=== PATIENT | female | born 1955 | race Caucasian/White ===

== ENCOUNTER 2018-08-04 00:59 | Outpatient (CLI) | payer OTHER, SELFPAY ==
--- NOTE | 2018-08-04 07:40 | DI.MAMMO_ITS ---
SYMPTOM/DIAGNOSIS: SCREENING, [facility], Z00.00 MAMMOGRAMS: Mammograms were interpreted according to the usual protocol including computer analysis with CAD system, tomosynthesis and C view imaging. Comparison is made with prior examinations. Breast density, Category B. No masses or microcalcifications are seen. There is nothing to suggest malignancy. IMPRESSION: Negative mammogram. Routine screening is recommended. Category 1. MQSA ASSESSMENT OF FINDINGS: Negative. Category 1. Patient will receive a letter notifying them of these results. BI-RADS category B. There are scattered areas of fibroglandular density.
== END 2018-08-04 01:19 ==
PROVIDERS: PCP Family Medicine; Visit Provider Family Medicine
DX: Z12.31 Encounter for screening mammogram for malignant neoplasm of breast (principal)
CPT/HCPCS: 77063; 77067

== ENCOUNTER 2019-06-22 08:48 | Outpatient (REF) | payer OTHER, SELFPAY ==
[2019-06-22 12:13] LABS: TSH (W/Ref FT4) 5.59 uIU/mL (0.36-3.74)
[2019-06-22 12:30] LABS: FREE T4 0.88 ng/dL (0.76-1.46)
== END 2019-06-22 09:08 ==
LOC: NCHCN 08:48
PROVIDERS: PCP Family Medicine; Visit Provider Family Medicine
DX: R63.5 Abnormal weight gain (principal)
CPT/HCPCS: 84439; 84443

== ENCOUNTER 2019-08-17 01:45 | Outpatient (CLI) | payer OTHER, SELFPAY ==
[2019-08-17 09:06] LABS: CREATININE 0.84 mg/dL (0.55-1.02)
== END 2019-08-17 02:05 ==
PROVIDERS: PCP Family Medicine
DX: Z86.79 Personal history of other diseases of the circulatory system (principal); Z98.890 Other specified postprocedural states
CPT/HCPCS: 36415; 82565

== ENCOUNTER 2019-09-10 06:15 | Day surgery (SDC) | payer OTHER, SELFPAY ==
[2019-09-10] MEDS: Lactated Ringers 1,000 ML 80 ML IV (07:22)
--- NOTE | 2019-09-10 07:54 | BOWEL_PTH ---
PATIENT: Mariana Riley LOC: [facility] U#:[id number] AGE/SX: 63/F ROOM: RE09/10/[address]: Katie Beckwith MD : [id number] BED: DIS: 09/10/2019 SPEC #: [id number] RECD: 09/10/19 12:54 STATUS: [place] REQ #: [id number] HOLLIE: 09/10/19 07:[address]: Katie Beckwith DEPT: Surgical Specimen RECD BY: Ina Jonas ENTERED: 09/10/19 12:55 SP TYPE: Bowel OTHR DR: Vicky Cabrera Tissues: 1 - BIOPSY BOWEL Procedures: GROSS AND MICRO LEVEL 4 Comments: [id number]
--- NOTE | 2019-09-10 08:10 | W.COLOREPORT ---
Date of service: 09/10/19 Time of Service: 08:10 Colonoscopy Report Date of procedure: 09/10/19 Pre-op diagnosis general: Colon Cancer Screening Post-op diagnosis procedure note: other (Mild Diverticulosis, internal hemorrhoids, polyp) Procedure: Colonoscopy with polypectomy Surgeon: Katie Beckwith Anesthesia proc note operative: other (General/ ASA 2/ lynne Jacinto, ROSELINE) Estimated blood loss (mL): 5 Pathology: other (Hepatic flexure polyp) Complications: None Disposition: same day Indications: 63-year-old female here for a screening colonoscopy. Her last colonoscopy was 11 years ago and was normal. She has no family history of colon cancer. Risks, benefits and complications have been reviewed. Complications include but are not limited to bleeding, pain, perforation, missed small lesion/polyp, sore throat, aspiration and adverse reaction to the medications. Questions were entertained and answered to their satisfaction and they wished to proceed. No guarantees were given or implied. Prep: Miralax/Dulcolax Procedure Start Time: 07:26 Procedure End Time: 08:04 Retraction Time: 20 minutes Findings: Mild diverticulosis of the sigmoid colon Possibly one polyp ? it may just be a lymphoid agregate Internal hemorrhoids Grade 1 Procedure Description: After informed consent was obtained the patient was taken to the procedure room and placed in a left decubitous position. Monitors were applied and a time out was done. The patients name, date of , procedure, allergies to medications and metal in their body was reviewed. The patient was then sedated. Once sedated and comfortable a rectal exam was done. External exam was normal. Internal exam revealed a normal sphincter tone and no palpable masses. The scope was then introduced and retro-flexed. Grade 1/2 internal hemorrhoids were identified. The scope was then advanced to the cecum with some difficulty due to a tortuous colon. The TI and appendiceal orifice were identified. The prep was adequate. The scope was then slowly retracted over 20 minutes back into the rectum. Polyps were removed with cold forceps at the hepatic flexure. This may just be a lymphoid aggregate and not a polyp. Mild diverticulosis was noted in the sigmoid colon. The scope was removed and the patient was woken up and taken back to Same day surgery in stable condition. The patient tolerated the procedure well and there were no immediate complications. Follow up: Follow up in will depend on path results.
--- NOTE | 2019-09-10 08:16 | PDOC.DSDIS_ITS ---
Discharge Plan Disposition Patient Disposition: HOME Condition: Good Discharge Details Reason For Visit: Colonoscopy Attending Provider: Katie Beckwith Primary Care Provider: Vicky Cabrera Home Meds and New Rx's Prescriptions: Continued multivitamin Capsule 1 cap PO DAILY RF: 0 atorvastatin 10 mg tablet 10 mg PO DAILY RF: 0 famotidine [Acid Buckle And Button Maker (famotidine)] 20 mg tablet 20 mg PO DAILY RF: 0 Discontinued bisacodyl [Dulcolax (bisacodyl)] 5 mg tablet,delayed release (DR/EC) 5 mg PO ONCE Qty: 4 RF: 0 polyethylene glycol 3350 17 gram powder in packet 255 g PO DAILY Qty: 15 RF: 0 Discharge Instructions Instructions: Diverticulosis (DC), Hemorrhoids (DC) Additional Instructions: Findings: mild diverticulosis small internal hemorrhoids ? a small polyp Follow up: depends on pathology results. Most likely 10 years Please call if you develop: fevers >101.5 Nausea or Vomiting Abdominal pain that is not transient DAY SURGERY UNIT POST ENDOSCOPY INSTRUCTIONS 1. Because there will be medication in your system for the next 24 hours, you may feel a little sleepy. Your coordination will be affected. Therefore: a. Do not drive or operate dangerous equipment for 24 hours. b. Do not drink alcohol beverages for 24 hours (not even beer). c. Plan to go home and rest for the day. 2. Generally there are no restrictions on your activity after a day or so has gone by, but you may feel a bit fatigued for a few days. 3 After you arrive home you may have a light meal and return to a normal diet as you can tolerate it without feeling sick to your stomach. 4. After surgery, you may feel pain or discomfort. This should be only transient, but if it persists please contact your doctor. 5. If there are any questions regarding the findings of your procedure, please feel free to contact your doctor. 6. If you are unable to contact your doctor with a problem, contact the hospital at [phone]. 7. Continue all your regular medications unless directed otherwise. I understand the above instructions and have no questions. Signature of Patient or Responsible Adult Escort Date/Time Name of Responsible Adult Escort Signature of Nurse Date/Time DS: Diagnosis Discharge Diagnosis (1) Diverticulosis: Status: Acute (2) S/P colonoscopy: Status: Acute (3) Internal hemorrhoids: Status: Acute
[2019-09-10 08:48] VITALS: BP 134/56; PULSE 77; RESP 17; TEMP 36.5; O2SAT 96
[2019-09-10 14:16] VITALS: BP 123/72; PULSE 78; RESP 18; TEMP 36.6; O2SAT 99
== END 2019-09-10 09:10 | disposition home or self-care (01) ==
PROVIDERS: PCP Family Medicine; Visit Provider Surgery
PROC: 0DJD8ZZ Inspection of Lower Intestinal Tract, Via Natural or Artificial Opening Endoscopic (ICD-10-PCS; CPT 45378; principal; 2019-09-10 07:30)
DX: Z12.11 Encounter for screening for malignant neoplasm of colon (principal); K63.89 Other specified diseases of intestine; K64.1 Second degree hemorrhoids; K57.30 Diverticulosis of large intestine without perforation or abscess without bleeding
CPT/HCPCS: 45380; 88305; J2405

== ENCOUNTER 2020-11-21 14:56 | Outpatient (REF) | payer MEDICARE, SELFPAY ==
[2020-11-21 17:02] LABS: HCT 37.7 % (36.0-46.0); HGB 12.2 g/dL (11.2-15.7); MCH 28.8 pg (27.0-33.0); MCHC 32.4 % (32.0-36.0); MCV 88.9 fL (80-95); MPV 9.9 fL (8.0-11.0); Platelet Count 218 10^3/uL (130-400); RBC 4.24 10^6/uL (3.93-5.22); RDW 14.3 % (11.7-14.6); RDW-SD 46.5 fL; WBC 4.52 10^3/uL (4.4-10.8)
[2020-11-21 17:06] LABS: Hemoglobin A1C 5.9 % (<5.7)
[2020-11-21 17:16] LABS: Anion Gap 8.6 mmol/L (3-11); BUN 20 mg/dL (7-18); CO2 28.4 mmol/L (21.0-32.0); CREATININE 0.8 mg/dL (0.55-1.02); Calcium 9.4 mg/dL (8.5-10.1); Calculated LDL 93 mg/dL (<100); Chloride 103 mmol/L (98-107); Cholesterol 161 mg/dL (<200); Glucose 85 mg/dL (74-106); HDL Cholesterol 51 mg/dL (40-60); Potassium 4.8 mmol/L (3.5-5.1); Sodium 140 mmol/L (136-145); TSH (W/Ref FT4) 1.49 uIU/mL (0.36-3.74); Triglyceride 85 mg/dL (<150)
== END 2020-11-21 14:57 | disposition home or self-care (01) ==
LOC: NCHCN 14:56
PROVIDERS: PCP Family Medicine; Visit Provider Family Medicine
DX: E03.9 Hypothyroidism, unspecified (principal); E78.5 Hyperlipidemia, unspecified; R73.03 Prediabetes
CPT/HCPCS: 80048; 80061; 85027; 83036; 84443

== ENCOUNTER 2021-02-27 02:46 | Outpatient (CLI) | payer MEDICARE, SELFPAY ==
--- NOTE | 2021-02-27 | DI.MAMMO_ITS ---
Exam(s) MAMMO SCREENING EXAM: MAMMO SCREENING CLINICAL HISTORY: SCREENING,Z12.39 TECHNIQUE: Mammograms were interpreted according to the usual protocol including computer analysis w [facility] CAD system, tomosynthesis and C-view imaging. COMPARISON: FINDINGS: The breasts are of moderate density with fairly symmetrical distribution of fibroglandular tissue. P rior left central breast biopsy is noted. There is no dominant mass or clumped microcalcification in either breast. Current examination is compared with previous examinations including August 2018 a nd there is question of increased prominence of a focal area of asymmetric density projected in the c entral portion left breast on MLO view. Additional mammographic views are requested to include MLO s pot compression view of the left breast. No other significant change seen. IMPRESSION: Additional mammographic views of the left breast requested as described above. Breast ultrasound may be indicated as well depending on the results of the additional mammographic views. BI-RADS Category 0 - Assessment Incomplete: Need additional imaging evaluation Breast Density - Category B - Scattered areas of fibroglandular density
== END 2021-02-27 03:06 ==
PROVIDERS: PCP Family Medicine; Visit Provider Family Medicine
DX: Z12.31 Encounter for screening mammogram for malignant neoplasm of breast (principal); R92.8 Other abnormal and inconclusive findings on diagnostic imaging of breast
CPT/HCPCS: 77063; 77067

== ENCOUNTER 2021-03-16 01:03 | Outpatient (CLI) | payer MEDICARE, SELFPAY ==
--- NOTE | 2021-03-16 | DI.US_ITS ---
Exam(s) US BREAST LT COMPLETE EXAM: US BREAST LT COMPLETE CLINICAL HISTORY: F/U MAMMO, ? INCREASE IN ASYMMTRIC DENSITY. TECHNIQUE: Complete ultrasound of the left breast was performed incluing all 4 quadrants, the retroa reolar region, and the ipsilateral axilla. COMPARISON: Prior mammograms were reviewed. Most recent mammogram was 02/27/2021. This patient also underwent spot mammographic view earlier today. FINDINGS: At 3 o'clock position there is an 8 x 6 millimeter benign lymph node which most probably corresponds to the laterally and posteriorly located lymph node on the mammogram. However, there are no ultrasound findings to correspond to the area of possible concern seen on the m ammogram (which is less concerning in appearance on today's additional spot mammographic view. IMPRESSION: Benign findings. No radiographic or ultrasound evidence of malignancy in the left breast. Appropriate follow-up is to keep this patient yearly mammogram schedule, with earlier imaging if a se lf detected breast change is noted. BI-RADS Category 2 - Benign Findings Breast Density - Category B - Scattered areas of fibroglandular density Breast density Category C or D implies that the patient has dense breast tissue. Dense breast tissue can make it harder to find cancer on a mammogram. Dense breast tissue is also associated with an incr eased risk of breast cancer. This information about the result of the mammogram report was provided to the patient to raise their awareness. Use this report when you speak with the patient about their risks for breast cancer, which includes their family history. At that time, you may recommend additional screening tests (Ultrasoun d or MRI) as these tests may add significant information. A negative radiographic report should not delay biopsy if a dominant or clinically suspicious mass is present. Up to ten percent of cancers are not identified on mammography. A negative report may reinforce clinical impression. Adenosis and dense breasts may obscure an underlying neoplasm. False positive reports average 6 to 10%. Patient will receive a letter notifying them of these results.
--- NOTE | 2021-03-16 14:02 | DI.MAMMO_ITS ---
Exam(s) MG MAMMO SCREEN CALL BACK UNI EXAM: MAMMO SCREEN CALL BACK UNI-LEFT CLINICAL HISTORY: F/U MAMMO, ?INCREASE IN ASYMMETRIC DENSITY. TECHNIQUE: Unilateral spot mammographic images were obtained with 3D tomosynthesis and utilizing com puter aided detection (CAD). . Breast Ultrasound was also performed. COMPARISON: Prior mammograms were reviewed. This additional imaging was performed due to findings described on the recent screening mammogram of 02/27/2021. FINDINGS: Additional mammographic views performed todayrender this area less concerning. Ultrasound performed today reveals no significant ultrasound findings at this location.. At 3 o'cloc k position of benign 8 x 6 millimeter lymph node is noted on ultrasound IMPRESSION: No radiographic evidence of malignancy. See separate ultrasound report. Appropriate follow-up is to keep this patient yearly mammogram schedule, with earlier imaging if a se lf detected breast change is noted.. The patient was informed of these findings and recommendations prior to leaving the department today. BI-RADS Category 2 - Benign Findings Breast Density - Category B - Scattered areas of fibroglandular density Breast density Category C or D implies that the patient has dense breast tissue. Dense breast tissue can make it harder to find cancer on a mammogram. Dense breast tissue is also associated with an incr eased risk of breast cancer. This information about the result of the mammogram report was provided to the patient to raise their awareness. Use this report when you speak with the patient about their risks for breast cancer, which includes their family history. At that time, you may recommend additional screening tests (Ultrasoun d or MRI) as these tests may add significant information. A negative radiographic report should not delay biopsy if a dominant or clinically suspicious mass is present. Up to ten percent of cancers are not identified on mammography. A negative report may reinforce clinical impression. Adenosis and dense breasts may obscure an underlying neoplasm. False positive reports average 6 to 10%. Patient will receive a letter notifying them of these results.
== END 2021-03-16 01:23 ==
PROVIDERS: PCP Family Medicine; Visit Provider Family Medicine
DX: Z12.31 Encounter for screening mammogram for malignant neoplasm of breast (principal); R92.8 Other abnormal and inconclusive findings on diagnostic imaging of breast; N60.82 Other benign mammary dysplasias of left breast
CPT/HCPCS: 76642; 77063; 77067

== ENCOUNTER 2022-01-29 20:12 | Outpatient (REF) | payer MEDICARE, SELFPAY ==
[2022-01-31 14:26] LABS: COVID-19 RT-PCR UVMMC Result Negative (Negative)
== END 2022-01-29 20:13 | disposition home or self-care (01) ==
LOC: NCHCN 20:12
PROVIDERS: PCP Family Medicine; Visit Provider Family Medicine
DX: Z20.822 Contact with and (suspected) exposure to COVID-19 (principal); J06.9 Acute upper respiratory infection, unspecified
CPT/HCPCS: U0003

== ENCOUNTER 2022-03-25 16:23 | Outpatient (REF) | payer MEDICARE, SELFPAY ==
[2022-03-25 16:01] LABS: Anion Gap 9.4 mmol/L (3-11); BUN 23 mg/dL (7-18); CO2 27.6 mmol/L (21.0-32.0); CREATININE 0.8 mg/dL (0.55-1.02); Calcium 9.1 mg/dL (8.5-10.1); Chloride 104 mmol/L (98-107); Glucose 87 mg/dL (74-106); Potassium 4.5 mmol/L (3.5-5.1); Sodium 141 mmol/L (136-145); TSH (W/Ref FT4) 1.47 uIU/mL (0.36-3.74)
== END 2022-03-25 16:24 | disposition home or self-care (01) ==
LOC: NCHCN 16:23
PROVIDERS: PCP Family Medicine; Visit Provider Family Medicine
DX: E03.9 Hypothyroidism, unspecified (principal); E78.5 Hyperlipidemia, unspecified; Z79.899 Other long term (current) drug therapy
CPT/HCPCS: 80048; 84443

== ENCOUNTER 2022-05-01 06:56 | Emergency (ER) | payer MEDICARE, SELFPAY ==
[2022-05-01] VITALS (18 sets, daily range): BP systolic 134–166; BP diastolic 62–86; PULSE 62–92; RESP 18; TEMP 36.5; O2SAT 92–100
--- NOTE | 2022-05-01 07:17 | DI.CT_ITS ---
Exam(s) CT ABDOMEN PELVIS CTA EXAM: CT ABDOMEN PELVIS CTA INDICATION: lower gi bleed, history of AAA with stent. COMPARISON: No exams were available for comparison TECHNIQUE: FINDINGS: CT examination of the abdomen and pelvis was performed with intravenous infusion of 100 cc of Omnipaq ue 350. Images obtained through the lung bases are unremarkable. The liver is unremarkable in appearance. Gallbladder and bile ducts are CT normal. Pancreas appears normal. Spleen is unremarkable in appearance. Adrenals appear normal. The kidneys are unremarkable with no evidence of hydronephrosis, nephrolithiasis, or renal mass.. Ur inary bladder unremarkable. There is an aortic bi-iliac stent in position. There is a 31 millimeter in diameter abdominal aortic aneurysm without evidence of rupture or leakage. No significant abdominal wall hernia. No abdominal or pelvic adenopathy. CURTAIN CUTTER structures appear intact. Appendix is normal. No evidence of diverticulitis or bowel obstruction. There is marked colonic wall thickening with pericolonic fat edema extending from this cecum to the m id sigmoid level. There is small quantity of free pelvic fluid. Findings are highly suggestive of a colitis, etiology uncertain. IMPRESSION: No evidence of acute vascular abnormality. There is a markedly abnormal appearance of the colon sugg esting a page colitis sparing the distal sigmoid and rectum.. RADIATION DOSE DELIVERED: 921.46mGy.cm Total DLP 921.46mGy.cm Total DLP !Error CTDIvol RADIATION OPTIMIZATION: All CT scans at this facility use at least one of these dose optimization te chniques: automated exposure control; mA and/or kV adjustment per patient size (includes targeted exa ms where dose is matched to clinical indication); or iterative reconstruction.
--- NOTE | 2022-05-01 07:19 | W.ED.GENAD ---
Discharge Plan Disposition Patient Disposition: STILL A PATIENT Condition: Stable Discharge Details Chief Complaint: Abd Prob Clinical Impression: Abdominal pain, BRBPR (bright red blood per rectum) Primary Care Provider: Vicky Cabrera ED Provider: Meño Greenfield Home Meds and New Rx's Prescriptions: No Action multivitamin Capsule 1 cap PO DAILY atorvastatin 10 mg tablet 10 mg PO DAILY famotidine [Acid Product Manager (famotidine)] 20 mg tablet 20 mg PO DAILY Medical Decision Making 66 yo female with hx of aaa s/p [place] [facility] [place] who comes in with abdominal pain and bright red blood per rectum. She felt well most of the day yesterday but then noticed she had a hard stool last night so strained to have a BM. She then later had lower abdomen pain and woke up and had a bloody bowel movement so came here. She still has the lower abdomen pain that she describes as a pressure. She has never had pain like this before. She is tender in the left lower abdomen without guarding, no upper abdominal tenderness. She has a small amount of blood on rectal exam when finger is removed during internal exam. She has not had any fevers and no vomit. Suspect this could be colitis vs diverticulitis but given her hx of aaa will obtain cta to evaluate for possible rupture of the aaa though unlikely given stable vitals and to also evaluate for diverticulitis and colitis. Patient signed out to oncoming provider pending labs and imaging results Differential Diagnosis Differential Diagnosis: diverticulitis, aaa, colitis Medical Records Medical records reviewed: Yes I reviewed the patient's medical records. Lab Data Lab results reviewed: Yes I reviewed the patient's lab results. HPI General Mode of arrival: ambulatory. Date/Time Provider Initiated Documentation: 05/01/22 06:58. Limitations to Documentation: no limitations. Information obtained by: patient. History of Present Illness 66 year old F presents to the emergency department with the chief complaint of abdominal pain, described as moderate, and is localized to the abdomen. Patient reports no radiation. Patient started experiencing this day(s) (1) and it has been constant. No relieving factors improve symptom(s), No exacerbating factors reported . Patient notes other (bloody bowel movements). Patient did receive the following treatments prior to arrival, none Related Data Home Medications Medication Instructions Recorded Confirmed atorvastatin 10 mg tablet 10 mg PO DAILY 07/16/19 09/05/19 famotidine 20 mg tablet (Acid 20 mg PO DAILY 07/16/19 09/05/19 Product Manager (famotidine)) multivitamin 1 cap PO DAILY 07/16/19 09/05/19 Allergies Allergy/AdvReac Type Severity Reaction Status Date / Time No Known Allergies Allergy Verified 08/17/19 07:29 General Stated Complaint: Abd Prob LIYA: 3 Review of Systems All systems reviewed & are unremarkable except as noted in HPI and below Constitutional Constitutional: Denies chills, Denies fever(s) and Denies weakness Cardiovascular Cardiovascular: Denies chest pain and Denies dyspnea Respiratory Respiratory: Denies cough and Denies dyspnea Gastrointestinal Gastrointestinal: Denies vomiting Genitourinary Genitourinary: Denies dysuria Neurologic Neurologic: Denies weakness PFSH All Active Problems (Updated 05/01/22 @ 07:27 by Meño Greenfield MD) Abdominal pain (Acute) BRBPR (bright red blood per rectum) (Acute) Internal hemorrhoids (Acute) S/P colonoscopy (Acute ~09/10/19) 2007- normal Diverticulosis (Acute) Screening for malignant neoplasm of colon performed (Acute) Abdominal aortic aneurysm (Acute) Hyperlipidemia (Acute) Tinnitus (Acute) Obesity (Chronic) GERD (gastroesophageal reflux disease) (Chronic) Hypothyroidism (Chronic) Medical History (Updated 05/01/22 @ 07:27 by Meño Greenfield MD) Pre-diabetes Surgical History (Updated 09/10/19 @ 08:16 by Katie Beckwith MD) H/O endovascular stent graft for abdominal aortic aneurysm Family History (Updated 07/16/19 @ 07:09 by Sandi Christina RN) Mother No problems noted. Father , Parkinsons, COPD, lung cancer, No problems noted. Social History (Updated 08/17/19 @ 07:49 by Katie Beckwith MD) Smoking/Tobacco Use Status: Former Tobacco Use Smoking risk assessment performed?: Yes Alcohol Intake: current Alcohol Intake frequency: holidays/special occasions only Drug use: Never Substance use type: does not use Household members: spouse Number of Children: 2 Current gender identity: female Do you feel safe at home: Yes Do you feel safe in your relationship?: Yes Exam Const General: no acute distress Orientation: alert HENMT Head: normal to inspection Ears: external ears normal General nose exam: external nose normal Mouth: moist mucous membranes Eyes General: appearance normal, both eyes and all related structures Neck Neck: normal visual inspection Resp Effort & Inspection: normal respiratory effort and able to speak in complete sentences Cardio Rate: regular rate GI Palpation: soft and tender Skin General skin exam: no rashes or lesions noted Neuro General: patient alert and patient oriented x3 Extrem General: normal to inspection Psych Mental Status: mental status grossly normal Course Vital Signs Vital signs: Vital Signs Temperature 36.5 C 05/01/22 07:05 Pulse 92 H 05/01/22 07:05 Respiratory Rate 18 05/01/22 07:05 Blood Pressure 166/81 H 05/01/22 07:05 Pulse Oximetry 99 05/01/22 07:05 Temperature 36.5 C 05/01/22 07:05 Temperature Source Temporal Artery Scan 05/01/22 07:05 Pulse 92 H 05/01/22 07:05 Respiratory Rate 18 05/01/22 07:05 Blood Pressure 166/81 H 05/01/22 07:05 Blood Pressure Position Sitting 05/01/22 07:05 Pulse Oximetry 99 05/01/22 07:05 Oxygen Delivery Method Room Air 05/01/22 07:05 Oxygen Flow Rate 0 05/01/22 07:05
[2022-05-01 07:42] LABS: Source Nasal/Nares
[2022-05-01 07:42] LABS: Abs Immature Grans 0.05 10^3/uL (0.0-0.06); Absolute Basophil Count 0.05 10^3/uL (0.0-0.2); Absolute Neutrophil Count 14.89 10^3/uL (1.2-6.7); Basophils % 0.3; HCT 41.8 % (36.0-46.0); HGB 13.4 g/dL (11.2-15.7); Immature Grans % 0.3; Lymphocytes % 4.4; MCH 29.1 pg (27.0-33.0); MCHC 32.1 % (32.0-36.0); MCV 91 fL (80-95); MPV 9.1 fL (8.0-11.0); Monocytes % 3.4; Neutrophils % 91.6; Platelet Count 263 10^3/uL (130-400); RDW 13.5 % (11.7-14.6); RDW-SD 45.6 fL; WBC 16.26 10^3/uL (4.4-10.8)
[2022-05-01 07:43] LABS: Absolute Lymphocyte Count 0.72 10^3/uL (1.2-3.4); Absolute Monocyte Count 0.55 10^3/uL (0.1-0.8)
[2022-05-01 07:58] LABS: PTT Activated 21.8 sec (21.0-27.5); Prothrombin Time 10.4 sec (9.3-11.0)
[2022-05-01 08:00] LABS: ALT 26 U/L (14-59); AST 20 U/L (15-37); Albumin 4.3 g/dL (3.4-5.0); Alkaline Phosphatase 118 U/L (46-116); Anion Gap 9.9 mmol/L (3-11); BUN 24 mg/dL (7-18); Bilirubin, Total 0.7 mg/dL (0.2-1.0); CO2 26.1 mmol/L (21.0-32.0); CREATININE 1.1 mg/dL (0.55-1.02); Calcium 9.4 mg/dL (8.5-10.1); Chloride 103 mmol/L (98-107); Estimated GFR 49.69 (mL/min/1.73m2); Glucose 141 mg/dL (74-106); Lipase 71 U/L (73-393); Magnesium 1.9 mg/dL (1.8-2.4); Potassium 4.1 mmol/L (3.5-5.1); Sodium 139 mmol/L (136-145); Total Protein 8.2 g/dL (6.4-8.2)
[2022-05-01 08:34] LABS: COVID-19 PCR Negative (Negative)
[2022-05-01] MEDS: Normal Saline Flush 10 ML SYR IVP (08:39)
[2022-05-01] MEDS: Omnipaque 350 MG/ML 100 ML BTL IJ (08:39)
--- NOTE | 2022-05-01 10:04 | DI.VRAD_ITS ---
PROCEDURE INFORMATION: Exam: CTA Abdomen and Pelvis With Contrast, GI Bleeding Exam date and time: 05/01/2022 8:25 AM Age: 66 years old Clinical indication: Other: Lower gi bleed, known aaa w/ stent TECHNIQUE: Imaging protocol: Computed tomographic angiography of the abdomen and pelvis with contrast. 3D rendering (Not supervised by radiologist): MIP and/or 3D reconstructed images were created by the technologist. Radiation optimization: All CT scans at this facility use at least one of these dose optimization techniques: automated exposure control; mA and/or kV adjustment per patient size (includes targeted exams where dose is matched to clinical indication); or iterative reconstruction. Contrast material: OMNIPAQUE 350; Contrast volume: 100 ml; Contrast route: INTRAVENOUS (IV); COMPARISON: No relevant prior studies available. FINDINGS: Tubes, catheters and devices: Infrarenal abdominal aortic aneurysm status post endograft repair. The aneurysm measures 3.0 x 3.1 cm. Aorta: No aortic aneurysm. No aortic dissection. Celiac trunk and mesenteric arteries: No occlusion or significant stenosis. Renal arteries: No occlusion or significant stenosis. Right iliac arteries: No occlusion or significant stenosis. Left iliac arteries: No occlusion or significant stenosis. Liver: No mass. Gallbladder and bile ducts: Unremarkable. No calcified stones. No ductal dilation. Pancreas: Unremarkable. No mass. No ductal dilation. Spleen: Unremarkable. No splenomegaly. Adrenal glands: Normal. No mass. Kidneys and ureters: Unremarkable. No solid mass. No hydronephrosis. Stomach and bowel: There is diffuse colonic wall thickening and pericolonic fat stranding, compatible with pancolitis, either infectious, inflammatory, less likely ischemic or neoplastic in nature. Appendix: No evidence of appendicitis. Intraperitoneal space: Small volume of simple free fluid in the pelvis. Lymph nodes: Unremarkable. No enlarged lymph nodes. Urinary bladder: Unremarkable. No mass. Reproductive: Unremarkable as visualized. Bones/joints: No acute fracture. No dislocation. Soft tissues: Fat containing umbilical hernia. IMPRESSION: 1. There is diffuse colonic wall thickening and pericolonic fat stranding, compatible with pancolitis, either infectious, inflammatory, less likely ischemic or neoplastic in nature. 2. Infrarenal abdominal aortic aneurysm status post endograft repair. Dictated and Authenticated by: Piter Burciaga MD. Ordering:MERARY Wilder MD
--- NOTE | 2022-05-01 10:15 | W.EDPROG ---
Date of service: 05/01/22 Time of Service: 10:15 Medical Decision Making Resting comfortably no acute distress only has discomfort before she is about to have a bowel movement. Evidence of pancolitis. Hemodynamically stable. Patient feels comfortable going home with oral antibiotics. Will be given first dose of Augmentin here. Home care instructions and return precautions given. Sign Out Sign Out Data: Sign Out Comment: lower abdomen pain starting last night and blood per rectum this morning, tender in llq, hx of AAA with stent placed ~5 years ago, pending cta and labs Last updated by Meño Greenfield MD at 05/01/22 07:38 Discharge Plan Disposition Patient Disposition: HOME Condition: Improving Discharge Details Clinical Impression: Abdominal pain, BRBPR (bright red blood per rectum), Colitis Primary Care Provider: Vicky Cabrera ED Provider: Siva Lora Home Meds and New Rx's Prescriptions: New amoxicillin-pot clavulanate 875-125 mg tablet 1 tab PO BID 10 Days Qty: 20 0RF No Action multivitamin Capsule 1 cap PO DAILY atorvastatin 10 mg tablet 10 mg PO DAILY famotidine [Acid Impact Retail Service Merchandiser (famotidine)] 20 mg tablet 20 mg PO DAILY Discharge Instructions Instructions: Colitis (ED) Additional Instructions: Please follow-up with your primary care physician. Consider a follow-up colonoscopy after you heal from your current infection. Please return sooner if you develop any worsening symptoms such as uncontrolled bleeding nausea vomiting fevers severe pain dehydration or other abnormal symptoms.
[2022-05-01] MEDS: Amoxicillin 875/Clav. 125 TAB PO (10:19)
--- NOTE | 2022-05-01 10:19 | NUR.NOTE ---
Nursing Note: Referral faxed to PCP for colitis/needs GI follow up; within 1 -2 weeks.
== END 2022-05-01 10:35 | disposition home or self-care (01) ==
PROVIDERS: Emergency Medicine; Emergency Provider Emergency Medicine; PCP Family Medicine
DX: K52.9 Noninfective gastroenteritis and colitis, unspecified (principal); K62.5 Hemorrhage of anus and rectum; Z86.79 Personal history of other diseases of the circulatory system; Z95.5 Presence of coronary angioplasty implant and graft; Z87.891 Personal history of nicotine dependence; Z20.822 Contact with and (suspected) exposure to COVID-19
CPT/HCPCS: 36415; 80053; 83690; 86850; 86900; 86901; 87635; 99284; 99285; 74174; 83735; 85025; 85610; 85730; J3490

== ENCOUNTER 2022-06-30 03:26 | Outpatient (CLI) | payer MEDICARE, SELFPAY ==
[2022-06-30 08:08] LABS: CREATININE 0.8 mg/dL (0.55-1.02); Estimated GFR 81.21 (mL/min/1.73m2)
== END 2022-06-30 03:27 | disposition home or self-care (01) ==
LOC: LBO 03:27
PROVIDERS: PCP Family Medicine; Visit Provider Surgery Vascular Surgery
DX: Z98.890 Other specified postprocedural states (principal); Z86.79 Personal history of other diseases of the circulatory system
CPT/HCPCS: 36415; 82565

== ENCOUNTER → 2022-07-23 00:24 | Outpatient (CLI) | payer MEDICARE, SELFPAY ==
--- NOTE | 2022-07-23 14:30 | DI.DEXA_ITS ---
Exam(s) XR DEXA BONE DENSITY W/WO LAST EXAM: XR DEXA BONE DENSITY W/WO LAST CLINICAL HISTORY: POSTMENOPAUSAL, Z78.0 TECHNIQUE: Routine DEXA evaluation of the lumbar spine, hip, or forearm. COMPARISON: No exams were available for comparison FINDINGS: Performed on a Hologic unit. Lateral image: No compression fracture evident. Lumbar Spine total T-score: -0.8 Hip total T-score:0.5 Independent reading at the level of the femoral neck yields at T-score of -2.0. Forearm total T-score: -0.3 IMPRESSION: Bone mineral density measures in the osteopenia range. Fracture risk is moderate. Note: Any spine fracture indicates 5x risk for subsequent spine fracture and 2x risk for subsequent h ip fracture. World Health Organization criteria for BMD interpretation classify patients: Normal...... T- Score at or above -1.0 Osteopenic... T- Score between -1.0 and -2.5 Osteoporosis... T-Score at or below -2.5
== END ==
PROVIDERS: PCP Family Medicine; Visit Provider Family Medicine
DX: Z78.0 Asymptomatic menopausal state (principal); Z13.820 Encounter for screening for osteoporosis; M85.88 Other specified disorders of bone density and structure, other site
CPT/HCPCS: 77080

== ENCOUNTER 2023-05-06 00:53 | Outpatient (CLI) | payer MEDICARE, SELFPAY ==
--- NOTE | 2023-05-06 08:00 | DI.MAMMO_ITS ---
Exam(s) MAMMO SCREENING EXAM: MAMMO SCREENING CLINICAL HISTORY: SCREENING, Z12.39. TECHNIQUE: Bilateral full field digital CC and MLO mammographic images were obtained with 3D tomosyn thesis and utilizing computer aided detection (CAD). COMPARISON: Prior mammograms were reviewed. FINDINGS: There has been no significant change in the appearance and distribution of the fibroglandular tissue. There are no new spiculated masses nor malignant appearing microcalcification groups. There is no significant architectural distortion nor skin thickening-retraction. IMPRESSION: No radiographic evidence of malignancy. BI-RADS Category 1 - Negative Breast Density - Category B - Scattered areas of fibroglandular density Breast density Category C or D implies that the patient has dense breast tissue. Dense breast tissue can make it harder to find cancer on a mammogram. Dense breast tissue is also associated with an incr eased risk of breast cancer. This information about the result of the mammogram report was provided to the patient to raise their awareness. Use this report when you speak with the patient about their risks for breast cancer, which includes their family history. At that time, you may recommend additional screening tests (Ultrasoun d or MRI) as these tests may add significant information. A negative radiographic report should not delay biopsy if a dominant or clinically suspicious mass is present. Up to ten percent of cancers are not identified on mammography. A negative report may reinforce clinical impression. Adenosis and dense breasts may obscure an underlying neoplasm. False positive reports average 6 to 10%. Patient will receive a letter notifying them of these results.
== END 2023-05-06 01:13 ==
LOC: DI 00:53
PROVIDERS: PCP Family Medicine; Visit Provider Family Medicine
DX: Z12.31 Encounter for screening mammogram for malignant neoplasm of breast (principal)
CPT/HCPCS: 77063; 77067

== ENCOUNTER 2024-04-27 12:11 | Outpatient (REF) | payer MEDICARE, SELFPAY ==
[2024-04-27 19:14] LABS: ALT 26 U/L (14-59); AST 18 U/L (15-37); Alkaline Phosphatase 79 U/L (46-116); Anion Gap 8.2 mmol/L (3-11); BUN 24 mg/dL (7-18); Bilirubin, Total 0.41 mg/dL (0.2-1.0); CO2 28.8 mmol/L (21.0-32.0); CREATININE 0.8 mg/dL (0.55-1.02); Calcium 9.3 mg/dL (8.5-10.1); Calculated LDL 74 mg/dL (<100); Chloride 104 mmol/L (98-107); Cholesterol 138 mg/dL (<200); Estimated GFR 80.21 (mL/min/1.73m2); Glucose 79 mg/dL (74-106); HDL Cholesterol 55 mg/dL (40-60); Potassium 4.3 mmol/L (3.5-5.1); Sodium 141 mmol/L (136-145); Total Protein 7.1 g/dL (6.4-8.2); Triglyceride 48 mg/dL (<150)
== END 2024-04-27 12:12 | disposition home or self-care (01) ==
LOC: NCHCN 12:11
PROVIDERS: PCP Family Medicine; Visit Provider Family Medicine
DX: E78.5 Hyperlipidemia, unspecified (principal); I71.40 Abdominal aortic aneurysm, without rupture, unspecified
CPT/HCPCS: 80053; 80061

== ENCOUNTER 2024-12-06 12:40 | Emergency (ER) | payer MEDICARE, SELFPAY ==
[2024-12-06 12:43] VITALS: BP 196/80; PULSE 78; RESP 16; TEMP 36.6; O2SAT 97
[2024-12-06 12:51] VITALS: BP 153/88; PULSE 71
[2024-12-06 13:30] LABS: Bilirubin Negative (Negative); Blood Negative (Negative); Clarity Clear (Clear); Glucose Negative (Negative); Ketones 80 mg/dL (Negative); Leukocyte Esterase Negative (Negative); Nitrite Negative (Negative); Specific Gravity >= 1.030 (1.005-1.025); Urobilinogen 0.2 mg/dL (Up to 0.2); pH 5.5 (5-8)
--- NOTE | 2024-12-06 13:30 | RT.EKG_ITS ---
APPROVED REPORT Exam: Resting ECG Reason for Exam: epigastric pain Patient Location: E HR:79 bpm ECG Measurements Heart Rate 79 AXIS ME 168 P 37 QRSd 90 QRS -6 QT 392 T 24 QTc 448 Conclusion Sinus rhythm...normal P axis, V-rate 60- 99 I have reviewed and interpreted ECG and agree with software generated interpretation.
[2024-12-06 14:19] LABS: Abs Immature Grans 0.01 10^3/uL (0.0-0.06); Absolute Basophil Count 0.05 10^3/uL (0.0-0.2); Absolute Lymphocyte Count 0.83 10^3/uL (1.2-3.4); Absolute Monocyte Count 0.22 10^3/uL (0.1-0.8); Absolute Neutrophil Count 5.22 10^3/uL (1.2-6.7); Basophils % 0.8 %; HCT 37.8 % (36.0-46.0); HGB 12.5 g/dL (11.2-15.7); Immature Grans % 0.2 %; Lymphocytes % 13.1 %; MCH 29.9 pg (27.0-33.0); MCHC 33.1 % (32.0-36.0); MCV 90 fL (80-95); MPV 9.2 fL (8.0-11.0); Monocytes % 3.5 %; Neutrophils % 82.4 %; Platelet Count 204 10^3/uL (130-400); RBC 4.18 10^6/uL (3.93-5.22); RDW 14.1 % (11.7-14.6); WBC 6.33 10^3/uL (4.4-10.8)
[2024-12-06 14:44] LABS: ALT 23 U/L (14-59); AST 21 U/L (15-37); Albumin 4.1 g/dL (3.4-5.0); Alkaline Phosphatase 90 U/L (46-116); Anion Gap 8.9 mmol/L (3-11); BUN 23 mg/dL (7-18); Bilirubin, Total 0.8 mg/dL (0.2-1.0); CO2 27.1 mmol/L (21.0-32.0); CREATININE 0.8 mg/dL (0.55-1.02); Calcium 9.4 mg/dL (8.5-10.1); Chloride 105 mmol/L (98-107); Estimated GFR 79.71 (mL/min/1.73m2); Glucose 103 mg/dL (74-106); Potassium 4.4 mmol/L (3.5-5.1); Sodium 141 mmol/L (136-145); Total Protein 7.7 g/dL (6.4-8.2); Troponin I 12 ng/L (<or=51)
[2024-12-06 14:51] LABS: Lipase 35 U/L (<78)
[2024-12-06 15:26] LABS: Troponin I 13 ng/L (<or=51)
--- NOTE | 2024-12-06 15:45 | DI.CT_ITS ---
Exam(s) CT ABDOMEN PELVIS W EXAM: CT ABDOMEN PELVIS W CLINICAL HISTORY: RUQ pain, hx of AA stent. TECHNIQUE: Imaging Protocol: Axial computed tomography images with coronal and sagittal reformatted images were created and reviewed CONTRAST MATERIAL: Intravenous: Omnipaque 350 Contrast volume:100 ml Oral: no COMPARISON: No exams were available for comparison FINDINGS: ABDOMEN and PELVIS: Lung Bases: No acute findings. Liver: Normal density. No suspicious mass. Gallbladder and biliary tract: No radiodense calculus. No wall thickening or pericholecystic fluid. No biliary dilation. Pancreas: Normal density. No abnormal calcifications or inflammatory process. No evidence of mass. Spleen: Normal. Kidneys: Normal size, contour and axis. There are few scattered tiny bilateral nonobstructing stones . No obstructive uropathy. No suspicious masses seen. Adrenal glands: No masses seen. Vasculature: Aorta via iliac stent again noted, unchanged. No change in size or appearance of [place] aortic aneurysm with mural thrombus. No evidence of leak. Soft tissues: Small fatty containing right inguinal hernia. Small fat containing umbilical hernia. Bladder: No gross wall thickening. No calculi.No focal mass. Bowel: No obstruction. No bowel wall thickening. Appendix normal. Diverticulosis of the sigmoid. No evidence of diverticulitis. Moderate quantity of stool. Peritoneal cavity: No ascites. No focal collection. No mesenteric inflammatory response. No free air . Bones: Unremarkable for age. Reproductive organs: Unremarkable. Lymph nodes: No pathologically enlarged lymph nodes. IMPRESSION:: No acute abnormality in the abdomen or pelvis. RADIATION DOSE DELIVERED: Total DLP DATA REPOSITORY: All CT scans at this facility are submitted to the National Radiology Data Registry (NRDR) Dose Index Registry (DIR) with the [employer] (ACR). RADIATION OPTIMIZATION: All CT scans at this facility use at least one of these dose optimization te chniques: automated exposure control; mA and/or kV adjustment per patient size (includes targeted exa ms where dose is matched to clinical indication); or iterative reconstruction.
[2024-12-06] MEDS: Omnipaque 350 MG/ML 100 ML BTL IJ (16:15)
[2024-12-06] MEDS: Normal Saline - Diluent 50 ML VIAL IJ (16:16)
--- NOTE | 2024-12-06 16:26 | ED.GENADUL_ITS ---
Discharge Plan Discharge Details Chief Complaint: Abd Prob Primary Care Provider: Vicky Cabrera ED Provider: Ina Hauser Home Meds and New Rx's Prescriptions: No Action multivitamin Capsule 1 cap PO DAILY atorvastatin 10 mg tablet 10 mg PO DAILY famotidine [Acid Inside Channel Account Manager (famotidine)] 20 mg tablet 20 mg PO DAILY calcium 600 mg capsule 600 mg PO DAILY AM HPI General Date/Time Provider Initiated Documentation: 12/06/24 13:12 . HPI Narrative: This 69-year-old female with history of abdominal aortic aneurysm with stent was just cleared by vascular 1 month prior to arrival presents with epigastric pain predominantly in the right upper quadrant. She states this started after eating the last 2 days. She denies any chest discomfort or shortness of breath associated. She denies any fever or chills. She denies any urinary symptoms Related Data Home Medications ?Medication ?Instructions ?Recorded ?Confirmed atorvastatin 10 mg tablet 10 mg PO DAILY 07/16/19 12/06/24 famotidine 20 mg tablet (Acid 20 mg PO DAILY 07/16/19 12/06/24 Inside Channel Account Manager (famotidine)) multivitamin 1 cap PO DAILY 07/16/19 12/06/24 calcium 600 mg capsule 600 mg PO DAILY AM 12/06/24 12/06/24 Allergies Allergy/AdvReac Type Severity Reaction Status Date / Time No Known Allergies Allergy Verified 12/06/24 12:50 General Stated Complaint: Abd Prob LIYA: 3 Exam Narrative Exam Narrative: Patient is alert and oriented she is in no acute distress he has no reproducible abdominal tenderness or palpable hernia cardiac rate rhythm regular no abdominal bruit or pulsatile mass distal pulses intact Course Vital Signs Vital signs: Vital Signs Temperature 36.6 C 12/06/24 12:43 Pulse 78 12/06/24 12:43 Respiratory Rate 16 12/06/24 12:43 Blood Pressure 196/80 H 12/06/24 12:43 Pulse Oximetry 97 12/06/24 12:43 Temperature 36.6 C 12/06/24 12:43 Temperature Source Oral 12/06/24 12:43 Pulse 71 12/06/24 12:51 Respiratory Rate 16 12/06/24 12:43 Blood Pressure 153/88 H 12/06/24 12:51 Pulse Oximetry 97 12/06/24 12:43 Oxygen Delivery Method Room Air 12/06/24 12:43 Oxygen Flow Rate 0 12/06/24 12:43 Pain Level 2 12/06/24 12:43 Lab/Test Results Lab/Test Results: Laboratory Tests Range/Units 12/06/24 12/06/24 12/06/24 12:55 14:08 15:06 WBC (4.4-10.8) 10^3/uL 6.33 RBC (3.93-5.22) 10^6/uL 4.18 Hgb (11.2-15.7) g/dL 12.5 Hct (36.0-46.0) % 37.8 MCV (80-95) fL 90 MCH (27.0-33.0) pg 29.9 MCHC (32.0-36.0) % 33.1 RDW (11.7-14.6) % 14.1 Plt Count (130-400) 10^3/uL 204 MPV (8.0-11.0) fL 9.2 Immature Gran % % 0.2 Neutrophils % % 82.4 Lymphocytes % % 13.1 Monocytes % % 3.5 Eosinophils % % 0.0 Basophils % % 0.8 Nucleated RBC % (0.0-0.3) % 0.0 Absolute Neutrophils (1.2-6.7) 10^3/uL 5.22 Absolute Lymphocytes (1.2-3.4) 10^3/uL 0.83 L Absolute Monocytes (0.1-0.8) 10^3/uL 0.22 Absolute Eosinophils (0.0-0.7) 10^3/uL 0.00 Absolute Basophils (0.0-0.2) 10^3/uL 0.05 Sodium (136-145) mmol/L 141 Potassium (3.5-5.1) mmol/L 4.4 Chloride (98-107) mmol/L 105 Carbon Dioxide (21.0-32.0) mmol/L 27.1 Anion Gap (3-11) mmol/L 8.9 BUN (7-18) mg/dL 23 H Creatinine (0.55-1.02) mg/dL 0.8 Est GFR (CKD-EPI 2020) (mL/min/1.73m2) 79.71 Glucose (74-106) mg/dL 103 Calcium (8.5-10.1) mg/dL 9.4 Total Bilirubin (0.2-1.0) mg/dL 0.8 AST (15-37) U/L 21 ALT (14-59) U/L 23 Alkaline Phosphatase (46-116) U/L 90 Troponin I (<or=51) ng/L 12 13 Total Protein (6.4-8.2) g/dL 7.7 Albumin (3.4-5.0) g/dL 4.1 Lipase (<78) U/L 35 Urine Color (Yellow) Yellow Urine Clarity (Clear) Clear Urine pH (5-8) 5.5 Ur Specific [place] (1.005-1.025) >= 1.030 H Urine Protein (Neg-Trace) mg/dL Negative Urine Ketones (Negative) mg/dL 80 H Urine Blood (Negative) Negative Urine Nitrite (Negative) Negative Urine Bilirubin (Negative) Negative Urine Urobilinogen (Up to 0.2) mg/dL 0.2 Ur Leukocyte Esterase (Negative) Negative Urine Glucose (Negative) mg/dL Negative Medical Decision Making 69-year-old female in no acute distress without any reproducible tenderness on assessment, but reported abdominal pain prior to arrival CBC within normal limits CMP within normal limits urinalysis pending and CT pending Patient with very stable stent in her abdominal aorta evaluated by vascular and cleared approximately 1 to 2 months prior to arrival today will order CT abdomen pelvis with right upper quadrant pain Patient will be transitioned pending CT abdomen and pelvis Suspicion clinically for cardiac etiology of patient's complaints Quality:SDOH Health Related Social Needs: No Data to Display PFSH All Active Problems (Updated 06/01/22 @ 00:07 by DAGOBERTO BLACKWELL) Internal hemorrhoids (Acute) S/P colonoscopy (Acute ~09/10/19) 2007- normal Diverticulosis (Acute) Screening for malignant neoplasm of colon performed (Acute) Abdominal aortic aneurysm (Acute) Hyperlipidemia (Acute) Tinnitus (Acute) Obesity (Chronic) GERD (gastroesophageal reflux disease) (Chronic) Hypothyroidism (Chronic) Medical History (Updated 06/01/22 @ 00:07 by DAGOBERTO BLACKWELL) Pre-diabetes Surgical History (Updated 09/10/19 @ 08:16 by Katie Beckwith MD) H/O endovascular stent graft for abdominal aortic aneurysm Family History (Updated 07/16/19 @ 07:09 by Sandi Christina RN) Mother No problems noted. Father , Parkinsons, COPD, lung cancer, No problems noted. Social History (Updated 08/17/19 @ 07:49 by Katie Beckwith MD) Smoking/Tobacco Use Status: Former Tobacco Use Smoking risk assessment performed?: Yes Alcohol Intake: current Alcohol Intake frequency: holidays/special occasions only Drug use: Never Substance use type: does not use Household members: spouse Housing: house Number of Children: 2 Current gender identity: female Do you feel safe at home: Yes Do you feel safe in your relationship?: Yes
--- NOTE | 2024-12-06 17:34 | W.ED.FU ---
Follow Up Plan: Handoff report received from SANDIP [facility] daytime [facility]O. Please see her note for full HPI, ROS, physical exam, and interpretation of labs. I did briefly interview Mariana and perform limited physical exam. She reports that she had episodes of self resolving abdominal pain yesterday morning and today; pain resolved by the time she came to the emergency department. Denies associated fever/chills, nausea/vomiting, change in bowel or bladder function. Labs are reassuring, urine does show concentrated urine with specific gravity greater than 1030 and ketones. BMP shows elevated creatinine to BUN ratio, consistent with prerenal azotemia. CT abdomen/pelvis unremarkable. Workup today very reassuring, unclear etiology of abdominal pain, possible gallstones vs functional abdominal pain vs gastritis. Recommend follow-up with PCP for further evaluation and to recheck urine for resolution of ketones. Reviewed discharge instructions with patient, including importance of good hydration PCP follow-up, and red flags indicating need for return to emergency care., Accession No. : [id number] Creator : MIRTHA FRASER Dictator : MIRTHA FRASER Control Clerk Food [employer] Beverage : Dialysis Social Worker : MIRTHA FRASER Approver2 : Report Date : 12/06/2024 16:27:55 Exam(s) CT ABDOMEN PELVIS W EXAM: CT ABDOMEN PELVIS W CLINICAL HISTORY: RUQ pain, hx of AA stent. TECHNIQUE: Imaging Protocol: Axial computed tomography images with coronal and sagittal reformatted images were created and reviewed CONTRAST MATERIAL: Intravenous: Omnipaque 350 Contrast volume:100 ml Oral: no COMPARISON: No exams were available for comparison FINDINGS: ABDOMEN and PELVIS: Lung Bases: No acute findings. Liver: Normal density. No suspicious mass. Gallbladder and biliary tract: No radiodense calculus. No wall thickening or pericholecystic fluid. No biliary dilation. Pancreas: Normal density. No abnormal calcifications or inflammatory process. No evidence of mass. Spleen: Normal. Kidneys: Normal size, contour and axis. There are few scattered tiny bilateral nonobstructing stones. No obstructive uropathy. No suspicious masses seen. Adrenal glands: No masses seen. Vasculature: Aorta via iliac stent again noted, unchanged. No change in size or appearance of [place] aortic aneurysm with mural thrombus. No evidence of leak. Soft tissues: Small fatty containing right inguinal hernia. Small fat containing umbilical hernia. Bladder: No gross wall thickening. No calculi.No focal mass. Bowel: No obstruction. No bowel wall thickening. Appendix normal. Diverticulosis of the sigmoid. No evidence of diverticulitis. Moderate quantity of stool. Peritoneal cavity: No ascites. No focal collection. No mesenteric inflammatory response. No free air. Bones: Unremarkable for age. Reproductive organs: Unremarkable. Lymph nodes: No pathologically enlarged lymph nodes. IMPRESSION:: No acute abnormality in the abdomen or pelvis. RADIATION DOSE DELIVERED: Total DLP DATA REPOSITORY: All CT scans at this facility are submitted to the National Radiology Data Registry (NRDR) Dose Index Registry (DIR) with the [employer] (ACR). RADIATION OPTIMIZATION: All CT scans at this facility use at least one of these dose optimization techniques: automated exposure control; mA and/or kV adjustment per patient size (includes targeted exams where dose is matched to clinical indication); or iterative reconstruction.
[2024-12-06 17:50] VITALS: BP 150/110; PULSE 74; O2SAT 99
== END 2024-12-06 17:50 | disposition home or self-care (01) ==
PROVIDERS: Physician Assistant; Emergency Provider Nurse Practitioner Family; PCP Family Medicine
DX: R10.13 Epigastric pain (principal); E78.5 Hyperlipidemia, unspecified; E03.9 Hypothyroidism, unspecified; Z87.891 Personal history of nicotine dependence
CPT/HCPCS: 36415; 80053; 83690; 93005; 99285; 74177; 81003; 84484; 85025; 93010; 99284; J3490

== ENCOUNTER → 2024-12-26 12:51 | Outpatient (BNVA) | payer MEDICARE, SELFPAY | PROVIDERS: PCP Family Medicine; Referring Provider Family Medicine; Visit Provider Surgery | DX: K40.90 Unilateral inguinal hernia, without obstruction or gangrene, not specified as recurrent (principal) | CPT/HCPCS: 99203 ==

== ENCOUNTER 2025-07-18 05:28 | Outpatient (CLI) | payer MEDICARE, SELFPAY ==
--- NOTE | 2025-07-18 | DI.MAMMO_ITS ---
Exam(s) MAMMO SCREENING EXAM: MAMMO SCREENING CLINICAL HISTORY: Z12.31 Screening TECHNIQUE: Mammograms were interpreted according to the usual protocol including computer analysis with CAD system, tomosynthesis and C-view imaging. COMPARISON: 2015 through 2022 FINDINGS: The breasts are composed of scattered fibroglandular densities, Breast Density category B. No suspicious masses or suspicious microcalcifications are seen. No skin thickening or abnormal axillary lymph nodes are seen. There has been no significant change from prior exams. IMPRESSION: BI-RADS Category 1, Negative mammogram Yearly screening mammography is recommended. Breast Density - Category B - There are scattered areas of fibroglandular density. Breast density Category C or D implies that the patient has dense breast tissue. Dense breast tissue can make it harder to find cancer on a mammogram. Dense breast tissue is also associated with an increased risk of breast cancer. This information about the result of the mammogram report was provided to the patient to raise their awareness. Use this report when you speak with the patient about their risks for breast cancer, which includes their family history. At that time, you may recommend additional screening tests (Ultrasound or MRI) as these tests may add significant information. A negative radiographic report should not delay biopsy if a dominant or clinically suspicious mass is present. Up to ten percent of cancers are not identified on mammography. A negative report may reinforce clinical impression. Adenosis and dense breasts may obscure an underlying neoplasm. False positive reports average 6 to 10%. Patient will receive a letter notifying them of these results.
--- NOTE | 2025-07-18 | DI.DEXA_ITS ---
Exam(s) XR DEXA BONE DENSITY W/WO LAST EXAM: XR DEXA BONE DENSITY W/WO LAST CLINICAL HISTORY: Z78.0 Asymptomatic menopausal state TECHNIQUE: Hologic Horizon C densitometer analysis of left hip, lumbar spine and right forearm. Lateral survey image of the thoracic and lumbar spine. COMPARISON: CR CHEST 2 VIEWS PA,LAT from 05/08/2015 CR XR DEXA BONE DENSITY W/WO LAST from 07/23/[address] ABDOMEN PELVIS W from 12/06/2024 FINDINGS: Lateral view of the thoracic and lumbar spine shows accentuation of the thoracic kyphosis. There is some anterior wedging of midthoracic vertebral bodies which are not optimally visualized. There is a stent in the abdominal aorta which overlies the lumbar spine. Bone mineral density measurements of the lumbar spine correspond to a total T- score of -1.5, in the osteopenic range. This represents an 8.4 percent decrease compared to 202. Bone mineral density measurements of the left hip correspond to a total T-score of 0.6.. This is stable from the prior exam. The femoral neck T-score is - 1.6, in the osteopenic range.. Theright forearm bone mineral density measurements correspond to a T-score of the distal 3rd of 0.6, in the normal range. This represents a 3.7 percent increase from 202 . IMPRESSION: Osteopenia of the lumbar spine and left hip. Normal bone mineral density of the forearm.
== END 2025-07-18 05:48 ==
LOC: DI 05:28
PROVIDERS: PCP Family Medicine; Visit Provider Family Medicine
DX: Z78.0 Asymptomatic menopausal state (principal); Z12.31 Encounter for screening mammogram for malignant neoplasm of breast; R92.323 Mammographic fibroglandular density, bilateral breasts
CPT/HCPCS: 77063; 77067; 77080